=== PATIENT | female | born 1970 | race Caucasian/White ===

== ENCOUNTER 2017-08-01 15:50 | Emergency (ER) | payer MEDICARE, OTHER ==
[~2017-08-01] VITALS: Ht 167.6 cm; Wt 103.5 kg
[~2017-08-01 15:50] MED LIST: invega
[2017-08-01 16:08] VITALS: BP 119/78
[2017-08-01] MEDS ORDERED: OLAN5TAB3 PO (17:12)
== END 2017-08-01 17:20 | disposition home or self-care (01) ==
LOC: ER 15:51
DX: Z76.0 Encounter for issue of repeat prescription (principal); F29 Unspecified psychosis not due to a substance or known physiological condition
CPT/HCPCS: 99283